=== PATIENT | female | born 1935 | race American Indian/Alaskan Native ===

== ENCOUNTER → 2018-08-10 08:39 | Outpatient (REF) | payer MEDICARE, MEDICAID, SELFPAY ==
[2018-08-10 11:07] LABS: Blood Urea Nitrogen 18 mg/dL (7-17); Calcium 9.2 mg/dL (8.4-10.2); Carbon Dioxide 38 mmol/L (22-32); Chloride 99 mmol/L (98-107); Glucose 72 mg/dL (80-110); HEMOLYSIS < 15 (0-50); Potassium 4.1 mmol/L (3.4-5.1); Sodium 140 mmol/L (137-145)
[2018-08-10 11:17] LABS: Add Manual Diff / Slide Review NO; Basophils Percent Auto 0.4 % (0-2); Eosinophils Percent Auto 3.7 % (2-4); Hematocrit 33.4 % (36-46); Hemoglobin 10.8 g/dL (12.0-16.0); Lymphocytes Percent Auto 21.6 % (25-40); Mean Corpuscular HGB Conc 32.4 % (30-36); Mean Corpuscular Volume 92.8 fL (80-100); Monocytes Percent Auto 10.6 % (3-14); Neutrophils Absolute Auto 2900 /uL (3000-5900); Neutrophils Percent Auto 63.7 % (50-75); Platelet Count 196 X10^3/uL (150-400); Red Cell Distribution Width 15.4 % (11.6-14.8); White Blood Cell Count 4.6 X10^3/uL (4.5-11.0)
== END ==
LOC: LAB 08:39
PROVIDERS: Family Provider Family Medicine; PCP Family Medicine; Visit Provider Hospitalist
DX: I48.91 Unspecified atrial fibrillation (principal); N39.0 Urinary tract infection, site not specified
CPT/HCPCS: 36415; 80048; 85025

== ENCOUNTER → 2018-08-19 08:45 | Outpatient (REF) | payer MEDICARE, MEDICAID, SELFPAY ==
[2018-08-19 09:56] LABS: BUN Creatinine Ratio 26.7 (6-22); Blood Urea Nitrogen 24 mg/dL (7-17); Calcium 9.2 mg/dL (8.4-10.2); Carbon Dioxide 38 mmol/L (22-32); Chloride 98 mmol/L (98-107); Estimated Glomerular Filt Rate 59.8 mL/min (>60); Glucose 76 mg/dL (80-110); HEMOLYSIS < 15 (0-50); Potassium 4.3 mmol/L (3.4-5.1); Sodium 143 mmol/L (137-145)
== END ==
LOC: LAB 08:45
PROVIDERS: Family Provider Family Medicine; PCP Family Medicine; Visit Provider Hospitalist
DX: I50.9 Heart failure, unspecified (principal)
CPT/HCPCS: 36415; 80048

== ENCOUNTER → 2018-09-11 19:28 | Outpatient (REF) | payer SELFPAY ==
[2018-09-11 19:33] LABS: Bacteria Urine None Seen; RBC Urine None Seen (0-5/HPF)
[2018-09-11 19:36] LABS: Appearance Urine UA CLEAR; Bilirubin Urine UA NEGATIVE (NEGATIVE); Color Urine UA YELLOW; Glucose Urine UA NEGATIVE (Normal); Ketones Urine UA NEGATIVE (NEGATIVE); Leukocyte Esterase Urine UA NEGATIVE (NEGATIVE); Nitrite Urine UA NEGATIVE (Negative); Occult Blood Urine UA NEGATIVE (Negative); Protein Urine UA NEGATIVE (Negative); Urobilinogen Urine UA 0.2 E.U./dL (0.2); pH Urine UA 6.5 (4.5-8.0)
[2018-09-11 19:43] LABS: Amorphous Sediment Urine 2+; WBC Urine None Seen (0-5/HPF)
== END ==
LOC: LAB 19:28
PROVIDERS: Family Provider Family Medicine; PCP Family Medicine; Visit Provider Nurse Practitioner Family
DX: R30.0 Dysuria (principal)
CPT/HCPCS: 81001; 87077; 87086

== ENCOUNTER 2018-12-07 17:41 | Emergency (ER) | payer MEDICARE, MEDICAID, SELFPAY ==
[2018-12-07 17:49] VITALS: BP 139/62; PULSE 67; RESP 22; TEMP 36.4; O2SAT 93
--- NOTE | 2018-12-07 21:35 | ED_ITS ---
HPI - Female Genitourinary General Chief complaint: Urogenital-Female Stated complaint: female problems Time Seen by Provider: 12/07/18 20:53 Source: patient Mode of arrival: wheelchair Limitations: no limitations History of Present Illness HPI Narrative: the patient is an 83-year-old female presenting with possibly lost vaginal applicator. She is currently being treated with Estrace, according to family and nursing his medication was applied today but the applicator has been lost. The patient's the the sore on her right perineal area. Related Data Previous Rx's Medication Instructions Recorded furosemide 20 mg PO QDAY #30 tab 07/11/16 metoprolol tartrate 50 mg PO BID #60 tab 10/28/16 tramadol 50 mg PO BID #60 tab 04/03/17 duloxetine [Cymbalta] 30 mg PO QDAY #30 cap 06/11/17 methimazole 5 mg PO QDAY #30 tab 06/24/17 potassium chloride [Klor-Con M20] 20 meq PO QDAY #30 tab 07/30/17 ropinirole [Requip] 0.25 mg PO HS #30 tab 08/15/17 rivaroxaban [Xarelto] 15 mg PO QDAY #30 tab 08/29/17 gabapentin [Neurontin] 300 mg PO TID #90 cap 09/22/17 lorazepam 1 mg PO HS #30 tab 10/08/17 nystatin 1 applictn TOP BID #30 gram 12/07/18 Allergies Allergy/AdvReac Type Severity Reaction Status Date / Time Penicillins [PENICILLINS] Allergy Severe HIVES Verified 12/07/18 17:53 cyclobenzaprine Allergy Unknown Verified 12/07/18 17:53 [CYCLOBENZAPRINE] indomethacin [INDOMETHACIN] Allergy Unknown Verified 12/07/18 17:53 ketorolac [KETOROLAC] Allergy Unknown Verified 12/07/18 17:53 morphine [MORPHINE] Allergy Unknown Verified 12/07/18 17:53 oxybutynin [OXYBUTYNIN] Allergy Unknown Verified 12/07/18 17:53 sertraline [SERTRALINE] Allergy Unknown Verified 12/07/18 17:53 aspirin [ASPIRIN] AdvReac Intermediate NAUSEA AND Verified 12/07/18 17:53 VOMITING ibuprofen [IBUPROFEN] AdvReac Intermediate NAUSEA AND Verified 12/07/18 17:53 VOMITING Review of Systems Review of Systems ROS Unobtainable: All systems reviewed & are unremarkable except as noted in HPI and below Constitutional Denies chills, Denies fever(s), Denies lethargy and Denies weakness Cardiovascular Denies chest pain, Denies irregular heart rhythm, Denies lightheadedness, Denies palpitations, Denies dyspnea, Denies dyspnea on exertion and Denies orthopnea Respiratory Denies cough, Denies dyspnea, Denies dyspnea on exertion and Denies wheezing Gastrointestinal Gastrointestinal: Denies abdominal pain, Denies change in bowel habits, Denies diarrhea, Denies nausea and Denies vomiting Genitourinary Reports as per HPI Musculoskeletal Denies back pain, Denies muscle weakness, Denies numbness and Denies tingling Integumentary/Breasts Denies pruritus, Denies erythema, Denies rash and Denies wounds Neurologic Denies numbness, Denies tingling and Denies weakness Endocrine Denies palpitations Allergic/Immunologic Denies wheezing [facility] Medical History Restless leg syndrome (Acute) Surgical History History of knee replacement Social History Smoking Status: Never smoker Social History Smoking Status: Never smoker Exam Initial Vital Signs Initial Vital Signs: Vital Signs Temperature 97.6 F 12/07/18 17:49 Pulse Rate 67 12/07/18 17:49 Respiratory Rate 22 12/07/18 17:49 Blood Pressure 139/62 12/07/18 17:49 Pulse Oximetry 93 12/07/18 17:49 GENERAL: overweight elderly male no acute distress HEENT: Head atraumatic,EOMI, pupils reactive, neck is supple CARDIOVASCULAR: Regular rate and rhythm without murmurs, rubs or gallops. RESPIRATORY: Breath sounds equal bilaterally, no wheezes rales or rhonchi. ABDOMEN: Soft, nontender. Normoactive bowel sounds all 4 quadrants. No guarding or rebound. PELVIC: External genitalia is normal, right inner thigh some mild skin breakdown. no vaginal bleeding, no vaginal discharge, no odor, cervical os is closed, no adnexal tenderness. no foreign body found by speculum or bimanual exam : No CVA tenderness EXTREMITIES: Normal range of motion, no clubbing or edema. Neurovascularly intact NEUROLOGICAL: Alert and oriented x4.Normal gait and speech. Cranial nerves II through XII grossly intact. [Good [id number], good [id number], strength equal bilaterally, no dysarthria or aphasia, sensation in tact to soft touch bilaterally, no visual changes, no facial droop] SKIN: Warm, dry, no laceration, no petechiae, no rashes or lesions. Course Vital Signs - 8 hr 12/07/18 21:46 Temperature 98.3 F Pulse Rate 70 Respiratory Rate 21 Blood Pressure [Left Arm] 172/68 H Pulse Oximetry 92 MDM - Female Genitourinary Lab Data Urine Dip Bedside Urine Glucose Negative Bedside Urine Bilirubin - Negative Bedside Urine Ketone - Negative Urine Specific [place] 1.010 Bedside Urine Occult Blood +/- Bedside Urine pH 6.5 Bedside Urine Protein - Negative Bedside Urine Urobilinogen +/- 1mg Bedside Urine Nitrite - Negative Bedside Urine Leukocytes - Negative Esterase MDM Narrative Medical decision making narrative: no foreign body found or felt in vagina. She does have a small wound right inner thigh. Some very mild skin breakdown. Discharge Plan Departure Patient Disposition: Home Clinical Impression: Rash of genital area Discharge Date/Time: 12/07/18 21:53 Interventions: ED Discharge Assessment Last Done: 12/07/18 21:52 Instructions: DI for [place] Diaper Rash Activity Restrictions/Additional Instructions: *You have been diagnosed with rash *What to do: *Continue to take medications as directed nystatin cream apply 2-3 times daily for 2 weeks or in till wound is healed *Follow up with your primary care provider in 2-3 days *Return to ER if you should have increasing pain, redness, fever, confusion or any new, worsening or concerning symptoms Prescriptions: New nystatin 100,000 unit/gram ointment 1 applictn TOP BID Qty: 30 RF: 0 No Action furosemide 20 MG tablet 20 mg PO QDAY Qty: 30 RF: 5 metoprolol tartrate 50 MG tablet 50 mg PO BID Qty: 60 RF: 3 tramadol 50 MG tablet 50 mg PO BID Qty: 60 RF: 1 duloxetine [Cymbalta] 30 MG capsule,delayed release(DR/EC) 30 mg PO QDAY Qty: 30 RF: 11 methimazole 5 MG tablet 5 mg PO QDAY Qty: 30 RF: 11 potassium chloride [Klor-Con M20] 20 MEQ tablet,ER particles/crystals 20 meq PO QDAY Qty: 30 RF: 5 ropinirole [Requip] 0.25 MG tablet 0.25 mg PO HS Qty: 30 RF: 6 rivaroxaban [Xarelto] 15 MG tablet 15 mg PO QDAY Qty: 30 RF: 6 gabapentin [Neurontin] 300 MG capsule 300 mg PO TID Qty: 90 RF: 2 lorazepam 1 MG tablet 1 mg PO HS Qty: 30 RF: 2
[2018-12-07 21:46] VITALS: BP 172/68; PULSE 70; RESP 21; TEMP 36.8; O2SAT 92
== END 2018-12-07 21:53 | disposition home or self-care (01) ==
PROVIDERS: Emergency Provider Emergency Medicine; Family Provider Family Medicine; PCP Family Medicine
DX: R21 Rash and other nonspecific skin eruption (principal)
CPT/HCPCS: 81003; 99283

== ENCOUNTER 2018-12-30 11:50 | Emergency (ER) | payer MEDICARE, MEDICAID, SELFPAY ==
[2018-12-30 12:11] VITALS: BP 158/70; PULSE 83; RESP 24; TEMP 36.5; O2SAT 100
--- NOTE | 2018-12-30 12:36 | ED.SOB ---
HPI - SOB/Dyspnea <JOSE Giron - Last Filed: 12/30/18 22:34> General Chief Complaint: Shortness of Breath/Dyspnea Stated Complaint: SOB Time Seen by Provider: 12/30/18 12:24 Source: family and EMS Mode of arrival: EMS Limitations: no limitations History of Present Illness 83-year-old female with history of morbid obesity CHF and pulmonary embolus here for complaint of having shortness of breath that started last night. She denies any chest pain. No fevers no chills. She also complains of having pain to bilateral lower extremities and describes this as crampy pain. This is not new for her as she reports that she normally has cramps to her lower extremities. She has been tolerating p.o. intake well. No stressors or relievers of her discomfort. She is able to speak full sentences. She normally uses oxygen at home due to sleep apnea. MD Complaint: shortness of breath Related Data Home Medications Medication Instructions Recorded Confirmed Xarelto 15 mg PO DAILY 12/30/18 12/30/18 acetaminophen-codeine 0.5 - 1 tab PO BID PRN 12/30/18 12/30/18 amiodarone 200 mg PO DAILY 12/30/18 12/30/18 clotrimazole-betamethasone 1 applic TOPICAL BID 12/30/18 12/30/18 duloxetine [Cymbalta] 30 mg PO DAILY 12/30/18 12/30/18 estradiol [Estrace] 1 applic VAGINAL BID 12/30/18 12/30/18 furosemide 40 mg PO DAILY 12/30/18 12/30/18 gabapentin 300 mg PO DAILY 12/30/18 12/30/18 gabapentin 600 mg PO BID 12/30/18 12/30/18 methimazole 5 mg PO DAILY 12/30/18 12/30/18 nitroglycerin 0.4 mg SUBLINGUAL PRN PRN 12/30/18 12/30/18 potassium chloride [Klor-Con M20] 20 meq PO DAILY 12/30/18 12/30/18 ropinirole [Requip] 0.25 mg PO BEDTIME 12/30/18 12/30/18 sulfamethoxazole-trimethoprim 1 tab PO BIDX7 12/30/18 12/30/18 tizanidine 4 mg PO BEDTIME 12/30/18 12/30/18 tramadol 50 mg PO TID PRN 12/30/18 12/30/18 Previous Rx's Medication Instructions Recorded nystatin 1 applictn TOP BID #30 gram 12/07/18 furosemide 40 mg PO DAILY #10 tab 12/30/18 furosemide 40 mg PO DAILY #7 tab 12/30/18 Allergies Allergy/AdvReac Type Severity Reaction Status Date / Time Penicillins [PENICILLINS] Allergy Severe HIVES Verified 12/07/18 17:53 cyclobenzaprine Allergy Unknown Verified 12/07/18 17:53 [CYCLOBENZAPRINE] indomethacin [INDOMETHACIN] Allergy Unknown Verified 12/07/18 17:53 ketorolac [KETOROLAC] Allergy Unknown Verified 12/07/18 17:53 morphine [MORPHINE] Allergy Unknown Verified 12/07/18 17:53 oxybutynin [OXYBUTYNIN] Allergy Unknown Verified 12/07/18 17:53 sertraline [SERTRALINE] Allergy Unknown Verified 12/07/18 17:53 aspirin [ASPIRIN] AdvReac Intermediate NAUSEA AND Verified 12/07/18 17:53 VOMITING ibuprofen [IBUPROFEN] AdvReac Intermediate NAUSEA AND Verified 12/07/18 17:53 VOMITING Review of Systems <JOSE Giron - Last Filed: 12/30/18 22:34> Constitutional Denies chills, Denies fever(s), Denies lethargy and Denies weakness Eyes Denies change in vision, Denies eye discharge, Denies irritation and Denies loss of vision ENT Ears, Nose, Mouth, and Throat: Denies change in voice, Denies neck pain, Denies sore throat and Denies throat swelling Cardiovascular Denies chest pain, Denies irregular heart rhythm, Denies lightheadedness, Denies palpitations, Reports dyspnea and Denies orthopnea Respiratory Reports dyspnea and Denies wheezing Gastrointestinal Gastrointestinal: Denies abdominal pain, Denies change in bowel habits, Denies diarrhea, Denies nausea and Denies vomiting Genitourinary Denies hematuria, Denies flank pain, Denies urinary incontinence and Denies urinary urgency Musculoskeletal Denies neck pain Neurologic Denies confusion, Denies loss of vision and Denies weakness Psychiatric Denies anxiety, Denies confusion, Denies depression, Denies homicidal ideation and Denies suicidal ideation Endocrine Denies palpitations Allergic/Immunologic Denies urticaria, Denies throat swelling and Denies wheezing PFSH <JOSE Giron - Last Filed: 12/30/18 22:34> Medical History Restless leg syndrome (Acute) Surgical History History of knee replacement Social History Smoking Status: Never smoker Social History Smoking Status: Never smoker Exam <JOSE Giron - Last Filed: 12/30/18 22:34> Initial Vital Signs Initial Vital Signs: Vital Signs Temperature 97.7 F 12/30/18 12:11 Pulse Rate 83 12/30/18 12:11 Respiratory Rate 24 12/30/18 12:11 Blood Pressure 158/70 H 12/30/18 12:11 Pulse Oximetry 100 12/30/18 12:11 Const General: cooperative and well developed Nutritional Appearance: well nourished Orientation: alert, awake, oriented x3 and not confused HENCA Mouth: oral mucosae normal and moist mucous membranes Eyes General: appearance normal, both eyes and all related structures Eyelids: eyelids normal Conjunctivae: conjunctivae normal Sclera: sclerae normal Pupils: PERRL EOM: EOM intact bilaterally Resp Effort & Inspection: normal respiratory effort, able to speak in complete sentences, no respiratory distress and no use of accessory muscles Auscultation: clear to auscultation bilaterally, no rales, no rhonchi and no wheezes Cardio Rate: regular rate Rhythm: regular rhythm Heart Sounds: no click, no gallops, no murmurs and no rubs Pulses: normal peripheral pulses Skin General: no rashes or lesions noted, No jaundice and No petechiae Neuro General: alert, oriented x3, gait normal and no focal motor deficits Speech: speech normal Extrem General: full ROM, no clubbing, cyanosis or edema, no pedal edema and no calf tenderness Right lower extremity: no edema Left lower extremity: no edema <Blessing Weber DO - Last Filed: 01/01/19 11:25> Initial Vital Signs Initial Vital Signs: Vital Signs Temperature 97.7 F 12/30/18 12:11 Pulse Rate 83 12/30/18 12:11 Respiratory Rate 24 12/30/18 12:11 Blood Pressure 158/70 H 12/30/18 12:11 Pulse Oximetry 100 12/30/18 12:11 Course <JOSE Giron - Last Filed: 12/30/18 22:34> Orders Ordered: Discontinued Medications Sodium Chloride (Normal Saline 0.9%) 500 mls @ 1,000 mls/hr IV BOLUS ONE Stop: 12/30/18 14:09 Last Infusion: 12/30/18 17:18 Dose: 0 mls/hr Admin: 12/30/18 13:43 Dose: 1,000 mls/hr Morphine Sulfate (Morphine) 2 mg IV NOW ONE Stop: 12/30/18 14:39 Vital Signs - 8 hr 12/30/18 14:49 12/30/18 16:30 Pulse Rate 83 82 Respiratory Rate 24 21 Blood Pressure [Left Arm] 147/111 H 138/60 Pulse Oximetry 97 100 <Blessing Weber DO - Last Filed: 01/01/19 11:25> Orders Ordered: Discontinued Medications Sodium Chloride (Normal Saline 0.9%) 500 mls @ 1,000 mls/hr IV BOLUS ONE Stop: 12/30/18 14:09 Last Infusion: 12/30/18 17:18 Dose: 0 mls/hr Admin: 12/30/18 13:43 Dose: 1,000 mls/hr Morphine Sulfate (Morphine) 2 mg IV NOW ONE Stop: 12/30/18 14:39 Vital Signs - 8 hr 12/30/18 14:49 12/30/18 16:30 Pulse Rate 83 82 Respiratory Rate 24 21 Blood Pressure [Left Arm] 147/111 H 138/60 Pulse Oximetry 97 100 MDM - SOB/Dyspnea <JOSE Giron - Last Filed: 12/30/18 22:34> Lab Data Result diagrams: 12/30/18 11:30 12/30/18 11:30 Lab Results 12/30/18 12/30/18 12/30/18 Range/Units 11:30 11:30 11:30 WBC 5.8 (4.5-11.0) X10^3/uL RBC 4.20 (4.0-5.2) X10^6/uL Hgb 13.0 (12.0-16.0) g/dL Hct 39.3 (36-46) % MCV 93.4 (80-100) fL MCH 30.9 (26-34) PG MCHC 33.1 (30-36) % RDW 14.7 (11.6-14.8) % Plt Count 238 (150-400) X10^3/uL Neut % (Auto) 71.5 (50-75) % Lymph % (Auto) 12.9 L (25-40) % [place] % (Auto) 13.7 (3-14) % Eos % (Auto) 1.5 L (2-4) % Baso % (Auto) 0.4 (0-2) % Neut # (Auto) 4100 (3614-6275) /uL Lymph # (Auto) 700 L (5437-9548) /uL [place] # (Auto) 800 (0-900) /uL Eos # (Auto) 100 (0-450) /uL Baso # (Auto) 0 (0-100) /uL Sodium 128 L (137-145) mmol/L Potassium 4.7 (3.4-5.1) mmol/L Chloride 89 L (98-107) mmol/L Carbon Dioxide 27 (22-32) mmol/L BUN 14 (7-17) mg/dL Creatinine 0.90 (0.52-1.04) mg/dL Estimated GFR 59.8 L (>60) mL/min BUN/Creatinine Ratio 15.6 (6-22) Glucose 96 (80-110) mg/dL Lactate (0.7-2.1) mmol/L Calcium 9.8 (8.4-10.2) mg/dL Magnesium 2.0 (1.6-2.3) mg/dL Total Bilirubin 1.4 H (0.2-1.3) mg/dL AST 42 H (14-36) IU/L ALT 24 (9-52) IU/L Alkaline Phosphatase 134 H (38-126) U/L Total Creatine Kinase 313 H (30-135) U/L CK-MB (CK-2) 7.80 H (<2.37) ng/mL CK-MB (CK-2) Rel Index 2.5 (1.5-5.0) % Troponin I 0.021 (0.01-0.034) ng/mL B-Natriuretic Peptide 651 H (<100) Total Protein 8.6 H (6.3-8.2) g/dL Albumin 4.6 (3.5-5.0) g/dL Globulin 4.0 (1.7-4.1) g/dL Albumin/Globulin Ratio 1.2 (1.0-2.8) Procalcitonin < 0.05 (<0.5) ng/mL Urine Color Urine Appearance Urine pH (4.5-8.0) Ur Specific [place] (1.000-1.035) Urine Protein (Negative) Urine Glucose (UA) (Negative) g/dL Urine Ketones (NEGATIVE) Urine Occult Blood (Negative) Urine Nitrate (Negative) Urine Bilirubin (NEGATIVE) Urine Urobilinogen (0.2) E.U./dL Ur Leukocyte Esterase (NEGATIVE) Urine RBC (0-5/HPF) Urine WBC (0-5/HPF) Ur Squamous Epith Cells Amorphous Sediment Urine Bacteria (None) Urine Mucus (Negative) Ur Culture Indicated? Influenza A & B (PCR) (Negative) 12/30/18 12/30/18 12/30/18 Range/Units 13:34 14:10 15:00 WBC (4.5-11.0) X10^3/uL RBC (4.0-5.2) X10^6/uL Hgb (12.0-16.0) g/dL Hct (36-46) % MCV (80-100) fL MCH (26-34) PG MCHC (30-36) % RDW (11.6-14.8) % Plt Count (150-400) X10^3/uL Neut % (Auto) (50-75) % Lymph % (Auto) (25-40) % [place] % (Auto) (3-14) % Eos % (Auto) (2-4) % Baso % (Auto) (0-2) % Neut # (Auto) (3212-7113) /uL Lymph # (Auto) (4726-5290) /uL [place] # (Auto) (0-900) /uL Eos # (Auto) (0-450) /uL Baso # (Auto) (0-100) /uL Sodium (137-145) mmol/L Potassium (3.4-5.1) mmol/L Chloride (98-107) mmol/L Carbon Dioxide (22-32) mmol/L BUN (7-17) mg/dL Creatinine (0.52-1.04) mg/dL Estimated GFR (>60) mL/min BUN/Creatinine Ratio (6-22) Glucose (80-110) mg/dL Lactate 1.4 (0.7-2.1) mmol/L Calcium (8.4-10.2) mg/dL Magnesium (1.6-2.3) mg/dL Total Bilirubin (0.2-1.3) mg/dL AST (14-36) IU/L ALT (9-52) IU/L Alkaline Phosphatase (38-126) U/L Total Creatine Kinase (30-135) U/L CK-MB (CK-2) (<2.37) ng/mL CK-MB (CK-2) Rel Index (1.5-5.0) % Troponin I (0.01-0.034) ng/mL B-Natriuretic Peptide (<100) Total Protein (6.3-8.2) g/dL Albumin (3.5-5.0) g/dL Globulin (1.7-4.1) g/dL Albumin/Globulin Ratio (1.0-2.8) Procalcitonin (<0.5) ng/mL Urine Color Yellow Urine Appearance Clear Urine pH 7.0 (4.5-8.0) Ur Specific [place] 1.010 (1.000-1.035) Urine Protein Negative (Negative) Urine Glucose (UA) Negative (Negative) g/dL Urine Ketones Negative (NEGATIVE) Urine Occult Blood Trace-intact (Negative) Urine Nitrate Negative (Negative) Urine Bilirubin Negative (NEGATIVE) Urine Urobilinogen 4.0 H (0.2) E.U./dL Ur Leukocyte Esterase Negative (NEGATIVE) Urine RBC 1-5/hpf (0-5/HPF) Urine WBC 0-1/hpf (0-5/HPF) Ur Squamous Epith Cells 0-1 /hpf Amorphous Sediment 1+ Urine Bacteria Occasional (0-1) (None) Urine Mucus 1+ H (Negative) Ur Culture Indicated? Cult not indicated Influenza A & B (PCR) Negative (Negative) Imaging Data CT scan - chest: Radiologist's impression: [address] [address] [address] Scan Report Signed Patient: Siddharth Spence [facility]#: [id number] : 5Acct:[id number] Age/Sex: 83 / FDate of Service: 12/30/18 Loc: Accession Number: [id number] Procedure: CT angio chest PE protocol Ordering Provider: Freddie Zapata PROCEDURE: CT ANGIO CHEST PE PROTOCOL INDICATIONS: Shortness of breath history of blood clots TECHNIQUE: After the administration of intravenous contrast, 2 mm thick sections acquired from the pulmonary apices to the posterior costophrenic angles. 3-dimensional maximum intensity projection (MIP) coronal and sagittal reformats were then acquired through the thorax. For radiation dose reduction, the following was used: automated exposure control, adjustment of mA and/or kV according to patient size. COMPARISON: [facility], CT, CT CHEST ABDOMEN PELVIS WITH TRAUMA, 07/22/2018, 14:00. FINDINGS: Image quality: A limited by suboptimal contrast opacification of the subsegmental pulmonary arteries. Pulmonary arteries: Pulmonary arteries are normal in size, and demonstrate no intraluminal filling defects to suggest central pulmonary embolism. Lungs and pleura: Dependent atelectasis noted. 8mm nodule in the lateral periphery of the lingula of left upper lobe has resolved. No pleural effusions or pneumothorax. Central and peripheral airways are patent. Mediastinum: Heart size is enlarged without pericardial effusion. Atherosclerotic calcifications are noted in the aorta, great vessels and the coronary vasculature. No mediastinal or hilar adenopathy. Thoracic aorta is normal in caliber and enhancement. Esophagus is normal in caliber, without hiatal hernia. Bones and chest wall: No suspicious bony lesions. Ribs and thoracic spine appear intact throughout. Spine degenerative disc disease and facet arthropathy. Convex right curvature thoracic spine noted. Thyroid gland is enlarged with multiple hypoattenuating nodules. Largest nodules in the left lobe measures 4.5 cm in diameter. There is leftward shift of the upper thoracic trachea related to enlarged thyroid.. No axillary or supraclavicular adenopathy. Abdomen: Small hiatal hernia. Gallbladder is absent. The spleen is normal. Liver is within normal limits where visualized. The adrenal glands are normal. IMPRESSION: 1. Diagnostic sensitivity study limited by poor contrast opacification of the subsegmental pulmonary arteries. 2. No evidence of pulmonary embolus to the level of the segmental pulmonary arteries. Small pulmonary emboli involving the subsegmental pulmonary arteries cannot be excluded due to the limitations of the study. 3. No lung consolidation or pleural effusions. 4. Cardiomegaly. 5. Atherosclerosis including the coronary vasculature. 6. Multinodular thyroid gland with the largest nodule measuring 4.5 cm. Recommend thyroid ultrasound for definitive characterization if clinically indicated. 7. Small hiatal hernia. Dictated by: Jacqui Crisostomo MD, PhD on 12/30/2018 at 14:10 Approved by: Jacqui Crisostomo MD, PhD on 12/30/2018 at 14:21 Venous US: Radiologist's impression: [address] [address] Ultrasound Report Signed Patient: Siddharth Spence [facility]#: [id number] : 5Acct:[id number] Age/Sex: 83 / FDate of Service: 12/30/18 Loc: ED Accession Number: [id number] Procedure: US periph venous low extrem bi Ordering Provider: Freddie Zapata PROCEDURE: US PERIPH VENOUS LOW EXTREM BI INDICATIONS: PAIN TO LOWER EXTREMITIES TECHNIQUE: Real-time imaging, as well as color and pulse Doppler interrogation, were performed of the deep veins of both legs from the inguinal ligament to the popliteal fossa. COMPARISON: None. FINDINGS: This is a limited study. Extremely difficult examination due to patient body habitus, uncooperation, and constant movement. No obvious sign of DVT. IMPRESSION: Technically challenging study, limited, with no obvious sign of DVT. Dictated by: Attila Villafana M.D. on 12/30/2018 at 13:50 Approved by: Attila Villafana M.D. on 12/30/2018 at 13:51 ECG Data Interpretation: EKG shows sinus rhythm with no ST elevation or depression. No ectopy. Ventricular rate of 78. Pr interval of 176. QRS duration of 108. QTC of 405. MDM Narrative Medical decision making narrative: pe protocol CT was obtained and was negative for pulmonary embolus. No acute cardiopulmonary findings. CT does show cardiomegaly. Incidental finding of a multi nodular thyroid gland will have this followed up by primary care provider. CBC shows normal white count normal H&H. chemistry shows hypo in a tree me a of 128 and a chloride of 89. BNP is elevated at 651. Procalcitonin was 0.05. lactate was normal at 1.4. Troponin was obtained and was negative. She is able to tolerate p.o. intake. She was given broth and saltine crackers which she tolerated well. Believe her cramps is due to the sodium level. Respiratory rate was elevated 24 looking at her prior respiratory values at believe this may be the norm for her. Discussed case with hospitalist Dr. Cortez who does not believe the patient meets admission criteria. She is given a small amount of Lasix for the next few days to help with CHF. She is instructed not to limit the amount of free water that she is drinking. She is in courage to increase her sodium intake over the next few days see her doctor in the next couple of days for re-evaluation. For any worsening symptoms return emergency room. <Blessing Weber, DO - Last Filed: 01/01/19 11:25> Lab Data Lab Results 12/30/18 12/30/18 12/30/18 Range/Units 11:30 11:30 11:30 WBC 5.8 (4.5-11.0) X10^3/uL RBC 4.20 (4.0-5.2) X10^6/uL Hgb 13.0 (12.0-16.0) g/dL Hct 39.3 (36-46) % MCV 93.4 (80-100) fL MCH 30.9 (26-34) PG MCHC 33.1 (30-36) % RDW 14.7 (11.6-14.8) % Plt Count 238 (150-400) X10^3/uL Neut % (Auto) 71.5 (50-75) % Lymph % (Auto) 12.9 L (25-40) % [place] % (Auto) 13.7 (3-14) % Eos % (Auto) 1.5 L (2-4) % Baso % (Auto) 0.4 (0-2) % Neut # (Auto) 4100 (8597-3900) /uL Lymph # (Auto) 700 L (9524-4999) /uL [place] # (Auto) 800 (0-900) /uL Eos # (Auto) 100 (0-450) /uL Baso # (Auto) 0 (0-100) /uL Sodium 128 L (137-145) mmol/L Potassium 4.7 (3.4-5.1) mmol/L Chloride 89 L (98-107) mmol/L Carbon Dioxide 27 (22-32) mmol/L BUN 14 (7-17) mg/dL Creatinine 0.90 (0.52-1.04) mg/dL Estimated GFR 59.8 L (>60) mL/min BUN/Creatinine Ratio 15.6 (6-22) Glucose 96 (80-110) mg/dL Lactate (0.7-2.1) mmol/L Calcium 9.8 (8.4-10.2) mg/dL Magnesium 2.0 (1.6-2.3) mg/dL Total Bilirubin 1.4 H (0.2-1.3) mg/dL AST 42 H (14-36) IU/L ALT 24 (9-52) IU/L Alkaline Phosphatase 134 H (38-126) U/L Total Creatine Kinase 313 H (30-135) U/L CK-MB (CK-2) 7.80 H (<2.37) ng/mL CK-MB (CK-2) Rel Index 2.5 (1.5-5.0) % Troponin I 0.021 (0.01-0.034) ng/mL B-Natriuretic Peptide 651 H (<100) Total Protein 8.6 H (6.3-8.2) g/dL Albumin 4.6 (3.5-5.0) g/dL Globulin 4.0 (1.7-4.1) g/dL Albumin/Globulin Ratio 1.2 (1.0-2.8) Procalcitonin < 0.05 (<0.5) ng/mL Urine Color Urine Appearance Urine pH (4.5-8.0) Ur Specific [place] (1.000-1.035) Urine Protein (Negative) Urine Glucose (UA) (Negative) g/dL Urine Ketones (NEGATIVE) Urine Occult Blood (Negative) Urine Nitrate (Negative) Urine Bilirubin (NEGATIVE) Urine Urobilinogen (0.2) E.U./dL Ur Leukocyte Esterase (NEGATIVE) Urine RBC (0-5/HPF) Urine WBC (0-5/HPF) Ur Squamous Epith Cells Amorphous Sediment Urine Bacteria (None) Urine Mucus (Negative) Ur Culture Indicated? Influenza A & B (PCR) (Negative) 12/30/18 12/30/18 12/30/18 Range/Units 13:34 14:10 15:00 WBC (4.5-11.0) X10^3/uL RBC (4.0-5.2) X10^6/uL Hgb (12.0-16.0) g/dL Hct (36-46) % MCV (80-100) fL MCH (26-34) PG MCHC (30-36) % RDW (11.6-14.8) % Plt Count (150-400) X10^3/uL Neut % (Auto) (50-75) % Lymph % (Auto) (25-40) % [place] % (Auto) (3-14) % Eos % (Auto) (2-4) % Baso % (Auto) (0-2) % Neut # (Auto) (9944-9541) /uL Lymph # (Auto) (4178-8776) /uL [place] # (Auto) (0-900) /uL Eos # (Auto) (0-450) /uL Baso # (Auto) (0-100) /uL Sodium (137-145) mmol/L Potassium (3.4-5.1) mmol/L Chloride (98-107) mmol/L Carbon Dioxide (22-32) mmol/L BUN (7-17) mg/dL Creatinine (0.52-1.04) mg/dL Estimated GFR (>60) mL/min BUN/Creatinine Ratio (6-22) Glucose (80-110) mg/dL Lactate 1.4 (0.7-2.1) mmol/L Calcium (8.4-10.2) mg/dL Magnesium (1.6-2.3) mg/dL Total Bilirubin (0.2-1.3) mg/dL AST (14-36) IU/L ALT (9-52) IU/L Alkaline Phosphatase (38-126) U/L Total Creatine Kinase (30-135) U/L CK-MB (CK-2) (<2.37) ng/mL CK-MB (CK-2) Rel Index (1.5-5.0) % Troponin I (0.01-0.034) ng/mL B-Natriuretic Peptide (<100) Total Protein (6.3-8.2) g/dL Albumin (3.5-5.0) g/dL Globulin (1.7-4.1) g/dL Albumin/Globulin Ratio (1.0-2.8) Procalcitonin (<0.5) ng/mL Urine Color Yellow Urine Appearance Clear Urine pH 7.0 (4.5-8.0) Ur Specific [place] 1.010 (1.000-1.035) Urine Protein Negative (Negative) Urine Glucose (UA) Negative (Negative) g/dL Urine Ketones Negative (NEGATIVE) Urine Occult Blood Trace-intact (Negative) Urine Nitrate Negative (Negative) Urine Bilirubin Negative (NEGATIVE) Urine Urobilinogen 4.0 H (0.2) E.U./dL Ur Leukocyte Esterase Negative (NEGATIVE) Urine RBC 1-5/hpf (0-5/HPF) Urine WBC 0-1/hpf (0-5/HPF) Ur Squamous Epith Cells 0-1 /hpf Amorphous Sediment 1+ Urine Bacteria Occasional (0-1) (None) Urine Mucus 1+ H (Negative) Ur Culture Indicated? Cult not indicated Influenza A & B (PCR) Negative (Negative) Discharge Plan Departure Patient Disposition: Home Clinical Impression: Acute hyponatremia Congestive heart failure (CHF) Qualifiers: Heart failure type: unspecified Heart failure chronicity: unspecified Qualified Code(s): I50.9 - Heart failure, unspecified Discharge Date/Time: 12/30/18 17:54 Interventions: ED Discharge Assessment Last Done: 12/30/18 17:14 Instructions: DI for Heart Failure Activity Restrictions/Additional Instructions: CT scan today was obtained and was negative for any acute pulmonary findings or blood clot. Ultrasound lower extremities was also obtained was also negative for any blood clots. Cardiac enzymes today were obtained and were negative. EKG today was unremarkable. Her BNP is elevated indicating that she has some heart failure. She is prescribed a small amount of Lasix over the next few days to help with this. Follow up with primary care provider in the next couple of days for re-evaluation. Her sodium level was low today ensure that she is not drinking as much free fluid. Increased sodium intake over the next few days to help with this level. Incidental finding on CT shows that she has nodules to her thyroid area. Recommend follow-up study see primary care about this for further evaluation. For any worsening symptoms return to the emergency room. Prescriptions: New furosemide 20 mg tablet 40 mg PO DAILY Qty: 10 RF: 0 furosemide 40 mg tablet 40 mg PO DAILY Qty: 7 RF: 0 No Action furosemide 40 mg tablet 40 mg PO DAILY RF: 0 gabapentin 600 mg tablet 600 mg PO BID RF: 0 tizanidine 4 mg tablet 4 mg PO BEDTIME RF: 0 amiodarone 200 mg tablet 200 mg PO DAILY RF: 0 acetaminophen-codeine 300-30 mg tablet 0.5 - 1 tab PO BID PRN (Reason: pain) RF: 0 nitroglycerin 0.4 mg tablet, sublingual 0.4 mg Sublingual PRN PRN (Reason: Chest Pain) RF: 0 estradiol [Estrace] 0.01 % (0.1 mg/gram) cream 1 applic Vaginal BID RF: 0 tramadol 50 MG tablet 50 mg PO TID PRN (Reason: pain) RF: 0 ropinirole [Requip] 0.25 MG tablet 0.25 mg PO BEDTIME RF: 0 methimazole 5 MG tablet 5 mg PO DAILY RF: 0 duloxetine [Cymbalta] 30 MG capsule,delayed release(DR/EC) 30 mg PO DAILY RF: 0 Xarelto 15 MG tablet 15 mg PO DAILY RF: 0 sulfamethoxazole-trimethoprim 800-160 mg tablet 1 tab PO BIDX7 RF: 0 potassium chloride [Klor-Con M20] 20 MEQ tablet,ER particles/crystals 20 meq PO DAILY RF: 0 gabapentin 600 mg tablet 300 mg PO DAILY RF: 0 clotrimazole-betamethasone 1-0.05 % cream 1 applic topical BID RF: 0 nystatin 100,000 unit/gram ointment 1 applictn TOP BID Qty: 30 RF: 0 Referrals: Lorenzo Muller MD [Primary Care Provider] - <Blessing Weber DO - Last Filed: 01/01/19 11:25> Cosign ED Attending Cosignature Attestation: I was immediately available in the department for consultation. Case was discussed and provider felt patient may benefit from observation. Patient has not had any treatment for CHF exacerbation up to this point and hospitalist deferred. This documentation has been reviewed and I agree with assessment and plan. Supervised by Blessing Weber DO
--- NOTE | 2018-12-30 12:53 | DI.US.S_ITS ---
PROCEDURE: US PERIPH VENOUS LOW EXTREM BI INDICATIONS: PAIN TO LOWER EXTREMITIES TECHNIQUE: Real-time imaging, as well as color and pulse Doppler interrogation, were performed of the deep veins of both legs from the inguinal ligament to the popliteal fossa. COMPARISON: None. FINDINGS: This is a limited study. Extremely difficult examination due to patient body habitus, uncooperation, and constant movement. No obvious sign of DVT. IMPRESSION: Technically challenging study, limited, with no obvious sign of DVT. Dictated by: Attila Villafana M.D. on 12/30/2018 at 13:50 Approved by: Attila Villafana M.D. on 12/30/2018 at 13:51
--- NOTE | 2018-12-30 12:55 | DI.CT.S_ITS ---
PROCEDURE: CT ANGIO CHEST PE PROTOCOL INDICATIONS: Shortness of breath history of blood clots TECHNIQUE: After the administration of intravenous contrast, 2 mm thick sections acquired from the pulmonary apices to the posterior costophrenic angles. 3-dimensional maximum intensity projection (MIP) coronal and sagittal reformats were then acquired through the thorax. For radiation dose reduction, the following was used: automated exposure control, adjustment of mA and/or kV according to patient size. COMPARISON: [facility], CT, CT CHEST ABDOMEN PELVIS WITH TRAUMA, 07/22/2018, 14:00. FINDINGS: Image quality: A limited by suboptimal contrast opacification of the subsegmental pulmonary arteries. Pulmonary arteries: Pulmonary arteries are normal in size, and demonstrate no intraluminal filling defects to suggest central pulmonary embolism. Lungs and pleura: Dependent atelectasis noted. 8mm nodule in the lateral periphery of the lingula of left upper lobe has resolved. No pleural effusions or pneumothorax. Central and peripheral airways are patent. Mediastinum: Heart size is enlarged without pericardial effusion. Atherosclerotic calcifications are noted in the aorta, great vessels and the coronary vasculature. No mediastinal or hilar adenopathy. Thoracic aorta is normal in caliber and enhancement. Esophagus is normal in caliber, without hiatal hernia. Bones and chest wall: No suspicious bony lesions. Ribs and thoracic spine appear intact throughout. Spine degenerative disc disease and facet arthropathy. Convex right curvature thoracic spine noted. Thyroid gland is enlarged with multiple hypoattenuating nodules. Largest nodules in the left lobe measures 4.5 cm in diameter. There is leftward shift of the upper thoracic trachea related to enlarged thyroid.. No axillary or supraclavicular adenopathy. Abdomen: Small hiatal hernia. Gallbladder is absent. The spleen is normal. Liver is within normal limits where visualized. The adrenal glands are normal. IMPRESSION: 1. Diagnostic sensitivity study limited by poor contrast opacification of the subsegmental pulmonary arteries. 2. No evidence of pulmonary embolus to the level of the segmental pulmonary arteries. Small pulmonary emboli involving the subsegmental pulmonary arteries cannot be excluded due to the limitations of the study. 3. No lung consolidation or pleural effusions. 4. Cardiomegaly. 5. Atherosclerosis including the coronary vasculature. 6. Multinodular thyroid gland with the largest nodule measuring 4.5 cm. Recommend thyroid ultrasound for definitive characterization if clinically indicated. 7. Small hiatal hernia. Dictated by: Jacqui Crisostomo MD, PhD on 12/30/2018 at 14:10 Approved by: Jacqui Crisostomo MD, PhD on 12/30/2018 at 14:21
[2018-12-30 13:04] LABS: Add Manual Diff / Slide Review NO; Basophils Absolute Auto 0 /uL (0-100); Basophils Percent Auto 0.4 % (0-2); Eosinophils Absolute Auto 100 /uL (0-450); Eosinophils Percent Auto 1.5 % (2-4); Hematocrit 39.3 % (36-46); Lymphocytes Absolute Auto 700 /uL (1100-4500); Lymphocytes Percent Auto 12.9 % (25-40); Mean Corpuscular HGB Conc 33.1 % (30-36); Mean Corpuscular Hemoglobin 30.9 PG (26-34); Mean Corpuscular Volume 93.4 fL (80-100); Monocytes Absolute Auto 800 /uL (0-900); Monocytes Percent Auto 13.7 % (3-14); Neutrophils Absolute Auto 4100 /uL (1500-7000); Neutrophils Percent Auto 71.5 % (50-75); Platelet Count 238 X10^3/uL (150-400); Red Cell Distribution Width 14.7 % (11.6-14.8); White Blood Cell Count 5.8 X10^3/uL (4.5-11.0)
[2018-12-30 13:13] LABS: Alanine Aminotransferase 24 IU/L (9-52); Albumin 4.6 g/dL (3.5-5.0); Albumin Globulin Ratio 1.2 (1.0-2.8); Alkaline Phosphatase 134 U/L (38-126); Aspartate Aminotransferase 42 IU/L (14-36); BUN Creatinine Ratio 15.6 (6-22); Bilirubin Total 1.4 mg/dL (0.2-1.3); Blood Urea Nitrogen 14 mg/dL (7-17); Calcium 9.8 mg/dL (8.4-10.2); Carbon Dioxide 27 mmol/L (22-32); Chloride 89 mmol/L (98-107); Creatine Kinase 313 U/L (30-135); Estimated Glomerular Filt Rate 59.8 mL/min (>60); Glucose 96 mg/dL (80-110); HEMOLYSIS < 15 (0-50); Potassium 4.7 mmol/L (3.4-5.1); Sodium 128 mmol/L (137-145); Total Protein 8.6 g/dL (6.3-8.2)
[2018-12-30 13:24] LABS: Troponin I 0.021 ng/mL (0.01-0.034)
[2018-12-30 13:28] LABS: CKMB % Relative Index 2.5 % (1.5-5.0)
[2018-12-30 13:29] LABS: Procalcitonin < 0.05 ng/mL (<0.5)
[2018-12-30 13:30] LABS: B Type Natriuretic Peptide 651 (<100)
[2018-12-30] MEDS: SODIUM CHLORIDE 0.9% 500 ML 1000 ML IV (13:43)
[2018-12-30 14:00] VITALS: BP 106/38; PULSE 93; RESP 24; O2SAT 99
[2018-12-30 14:21] LABS: Lactate (Lactic Acid) 1.4 mmol/L (0.7-2.1)
--- NOTE | 2018-12-30 14:25 | PC.NURSE ---
pt insisting to stand up for cramps, pt is asking for salt packets. notified provider. offered pt a wheelchair to sit, pt daughter stated she'd likely stand up without help and fall. she didn't want us to move her out of bed.
[2018-12-30 14:33] LABS: Influenza A and B by PCR Rapid Negative (Negative)
[2018-12-30 14:49] VITALS: BP 147/111; PULSE 83; RESP 24; O2SAT 97
[2018-12-30 15:34] LABS: Appearance Urine UA CLEAR; Bilirubin Urine UA NEGATIVE (NEGATIVE); Color Urine UA YELLOW; Glucose Urine UA NEGATIVE (Negative); Ketones Urine UA NEGATIVE (NEGATIVE); Leukocyte Esterase Urine UA NEGATIVE (NEGATIVE); Nitrite Urine UA NEGATIVE (Negative); Occult Blood Urine UA TRACE-INTACT (Negative); Protein Urine UA NEGATIVE (Negative)
--- NOTE | 2018-12-30 15:37 | PC.NURSE ---
pt given chicken broth and saltines, then helped back to bed, pt resting with eyes closed.
[2018-12-30 15:48] LABS: Amorphous Sediment Urine 1+; Bacteria Urine Occasional (0-1); Culture Indicated Urine Cult Not Indicated; Mucus Urine 1+ (Negative); RBC Urine 1-5/HPF (0-5/HPF); Squamous Epithelial Cell Urine 0-1 /HPF; WBC Urine 0-1/HPF (0-5/HPF)
--- NOTE | 2018-12-30 16:09 | ED_ITS ---
HPI - SOB/Dyspnea <JOSE Giron - Last Filed: 12/30/18 22:34> General Chief Complaint: Shortness of Breath/Dyspnea Stated Complaint: SOB Time Seen by Provider: 12/30/18 12:24 Source: family and EMS Mode of arrival: EMS Limitations: no limitations History of Present Illness 83-year-old female with history of morbid obesity CHF and pulmonary embolus here for complaint of having shortness of breath that started last night. She denies any chest pain. No fevers no chills. She also complains of having pain to b ilateral lower extremities and describes this as crampy pain. This is not new for her as she reports that she normally has cramps to her lower extremities. She has been tolerating p.o. intake well. No stressors or relievers of her discomfort. She is able to speak full sentences. She normally uses oxygen at home due to sleep apnea. MD Complaint: shortness of breath Related Data Home Medications Medication Instructions Recorded Confirmed Xarelto 15 mg PO DAILY 12/30/18 12/30/18 acetaminophen-codeine 0.5 - 1 tab PO BID PRN 12/30/18 12/30/18 amiodarone 200 mg PO DAILY 12/30/18 12/30/18 clotrimazole-betamethasone 1 applic TOPICAL BID 12/30/18 12/30/18 duloxetine [Cymbalta] 30 mg PO DAILY 12/30/18 12/30/18 estradiol [Estrace] 1 applic VAGINAL BID 12/30/18 12/30/18 furosemide 40 mg PO DAILY 12/30/18 12/30/18 gabapentin 300 mg PO DAILY 12/30/18 12/30/18 gabapentin 600 mg PO BID 12/30/18 12/30/18 methimazole 5 mg PO DAILY 12/30/18 12/30/18 nitroglycerin 0.4 mg SUBLINGUAL PRN PRN 12/30/18 12/30/18 potassium chloride [Klor-Con M20] 20 meq PO DAILY 12/30/18 12/30/18 ropinirole [Requip] 0.25 mg PO BEDTIME 12/30/18 12/30/18 sulfamethoxazole-trimethoprim 1 tab PO BIDX7 12/30/18 12/30/18 tizanidine 4 mg PO BEDTIME 12/30/18 12/30/18 tramadol 50 mg PO TID PRN 12/30/18 12/30/18 Previous Rx's Medication Instructions Recorded nystatin 1 applictn TOP BID #30 gram 12/07/18 furosemide 40 mg PO DAILY #10 tab 12/30/18 furosemide 40 mg PO DAILY #7 tab 12/30/18 Allergies Allergy/AdvReac Type Severity Reaction Status Date / Time Penicillins [PENICILLINS] Allergy Severe HIVES Verified 12/07/18 17:53 cyclobenzaprine Allergy Unknown Verified 12/07/18 17:53 [CYCLOBENZAPRINE] indomethacin [INDOMETHACIN] Allergy Unknown Verified 12/07/18 17:53 ketorolac [KETOROLAC] Allergy Unknown Verified 12/07/18 17:53 morphine [MORPHINE] Allergy Unknown Verified 12/07/18 17:53 oxybutynin [OXYBUTYNIN] Allergy Unknown Verified 12/07/18 17:53 sertraline [SERTRALINE] Allergy Unknown Verified 12/07/18 17:53 aspirin [ASPIRIN] AdvReac Intermediate NAUSEA AND Verified 12/07/18 17:53 VOMITING ibuprofen [IBUPROFEN] AdvReac Intermediate NAUSEA AND Verified 12/07/18 17:53 VOMITING Review of Systems <JOSE Giron - Last Filed: 12/30/18 22:34> Constitutional Denies chills, Denies fever(s), Denies lethargy and Denies weakness Eyes Denies change in vision, Denies eye discharge, Denies irritation and Denies loss of vision ENT Ears, Nose, Mouth, and Throat: Denies change in voice, Denies neck pain, Denies sore throat and Denies throat swelling Cardiovascular Denies chest pain, Denies irregular heart rhythm, Denies lightheadedness, Denies palpitations, Reports dyspnea and Denies orthopnea Respiratory Reports dyspnea and Denies wheezing Gastrointestinal Gastrointestinal: Denies abdominal pain, Denies change in bowel habits, Denies diarrhea, Denies nausea and Denies vomiting Genitourinary Denies hematuria, Denies flank pain, Denies urinary incontinence and Denies urinary urgency Musculoskeletal Denies neck pain Neurologic Denies confusion, Denies loss of vision and Denies weakness Psychiatric Denies anxiety, Denies confusion, Denies depression, Denies homicidal ideation and Denies suicidal ideation Endocrine Denies palpitations Allergic/Immunologic Denies urticaria, Denies throat swelling and Denies wheezing PFSH <JOSE Giron - Last Filed: 12/30/18 22:34> Medical History Restless leg syndrome (Acute) Surgical History History of knee replacement Social History Smoking Status: Never smoker Social History Smoking Status: Never smoker Exam <JOSE Giron - Last Filed: 12/30/18 22:34> Initial Vital Signs Initial Vital Signs: Vital Signs Temperature 97.7 F 12/30/18 12:11 Pulse Rate 83 12/30/18 12:11 Respiratory Rate 24 12/30/18 12:11 Blood Pressure 158/70 H 12/30/18 12:11 Pulse Oximetry 100 12/30/18 12:11 Const General: cooperative and well developed Nutritional Appearance: well nourished Orientation: alert, awake, oriented x3 and not confused HENNJ Mouth: oral mucosae normal and moist mucous membranes Eyes General: appearance normal, both eyes and all related structures Eyelids: eyelids normal Conjunctivae: conjunctivae normal Sclera: sclerae normal Pupils: PERRL EOM: EOM intact bilaterally Resp Effort & Inspection: normal respiratory effort, able to speak in complete sentences, no respiratory distress and no use of accessory muscles Auscultation: clear to auscultation bilaterally, no rales, no rhonchi and no wheezes Cardio Rate: regular rate Rhythm: regular rhythm Heart Sounds: no click, no gallops, no murmurs and no rubs Pulses: normal peripheral pulses Skin General: no rashes or lesions noted, No jaundice and No petechiae Neuro General: alert, oriented x3, gait normal and no focal motor deficits Speech: speech normal Extrem General: full ROM, no clubbing, cyanosis or edema, no pedal edema and no calf tenderness Right lower extremity: no edema Left lower extremity: no edema <Blessing Weber DO - Last Filed: 01/01/19 11:25> Initial Vital Signs Initial Vital Signs: Vital Signs Temperature 97.7 F 12/30/18 12:11 Pulse Rate 83 12/30/18 12:11 Respiratory Rate 24 12/30/18 12:11 Blood Pressure 158/70 H 12/30/18 12:11 Pulse Oximetry 100 12/30/18 12:11 Course <JOSE Giron - Last Filed: 12/30/18 22:34> Orders Ordered: Discontinued Medications Sodium Chloride (Normal Saline 0.9%) 500 mls @ 1,000 mls/hr IV BOLUS ONE Stop: 12/30/18 14:09 Last Infusion: 12/30/18 17:18 Dose: 0 mls/hr Admin: 12/30/18 13:43 Dose: 1,000 mls/hr Morphine Sulfate (Morphine) 2 mg IV NOW ONE Stop: 12/30/18 14:39 Vital Signs - 8 hr 12/30/18 14:49 12/30/18 16:30 Pulse Rate 83 82 Respiratory Rate 24 21 Blood Pressure [Left Arm] 147/111 H 138/60 Pulse Oximetry 97 100 <Blessing Weber DO - Last Filed: 01/01/19 11:25> Orders Ordered: Discontinued Medications Sodium Chloride (Normal Saline 0.9%) 500 mls @ 1,000 mls/hr IV BOLUS ONE Stop: 12/30/18 14:09 Last Infusion: 12/30/18 17:18 Dose: 0 mls/hr Admin: 12/30/18 13:43 Dose: 1,000 mls/hr Morphine Sulfate (Morphine) 2 mg IV NOW ONE Stop: 12/30/18 14:39 Vital Signs - 8 hr 12/30/18 14:49 12/30/18 16:30 Pulse Rate 83 82 Respiratory Rate 24 21 Blood Pressure [Left Arm] 147/111 H 138/60 Pulse Oximetry 97 100 MDM - SOB/Dyspnea <JOSE Giron - Last Filed: 12/30/18 22:34> Lab Data Result diagrams: 12/30/18 11:30 12/30/18 11:30 Lab Results 12/30/18 12/30/18 12/30/18 Range/Units 11:30 11:30 11:30 WBC 5.8 (4.5-11.0) X10^3/uL RBC 4.20 (4.0-5.2) X10^6/uL Hgb 13.0 (12.0-16.0) g/dL Hct 39.3 (36-46) % MCV 93.4 (80-100) fL MCH 30.9 (26-34) PG MCHC 33.1 (30-36) % RDW 14.7 (11.6-14.8) % Plt Count 238 (150-400) X10^3/uL Neut % (Auto) 71.5 (50-75) % Lymph % (Auto) 12.9 L (25-40) % [place] % (Auto) 13.7 (3-14) % Eos % (Auto) 1.5 L (2-4) % Baso % (Auto) 0.4 (0-2) % Neut # (Auto) 4100 (2284-7703) /uL Lymph # (Auto) 700 L (1079-5345) /uL [place] # (Auto) 800 (0-900) /uL Eos # (Auto) 100 (0-450) /uL Baso # (Auto) 0 (0-100) /uL Sodium 128 L (137-145) mmol/L Potassium 4.7 (3.4-5.1) mmol/L Chloride 89 L (98-107) mmol/L Carbon Dioxide 27 (22-32) mmol/L BUN 14 (7-17) mg/dL Creatinine 0.90 (0.52-1.04) mg/dL Estimated GFR 59.8 L (>60) mL/min BUN/Creatinine Ratio 15.6 (6-22) Glucose 96 (80-110) mg/dL Lactate (0.7-2.1) mmol/L Calcium 9.8 (8.4-10.2) mg/dL Magnesium 2.0 (1.6-2.3) mg/dL Total Bilirubin 1.4 H (0.2-1.3) mg/dL AST 42 H (14-36) IU/L ALT 24 (9-52) IU/L Alkaline Phosphatase 134 H (38-126) U/L Total Creatine Kinase 313 H (30-135) U/L CK-MB (CK-2) 7.80 H (<2.37) ng/mL CK-MB (CK-2) Rel Index 2.5 (1.5-5.0) % Troponin I 0.021 (0.01-0.034) ng/mL B-Natriuretic Peptide 651 H (<100) Total Protein 8.6 H (6.3-8.2) g/dL Albumin 4.6 (3.5-5.0) g/dL Globulin 4.0 (1.7-4.1) g/dL Albumin/Globulin Ratio 1.2 (1.0-2.8) Procalcitonin < 0.05 (<0.5) ng/mL Urine Color Urine Appearance Urine pH (4.5-8.0) Ur Specific [place] (1.000-1.035) Urine Protein (Negative) Urine Glucose (UA) (Negative) g/dL Urine Ketones (NEGATIVE) Urine Occult Blood (Negative) Urine Nitrate (Negative) Urine Bilirubin (NEGATIVE) Urine Urobilinogen (0.2) E.U./dL Ur Leukocyte Esterase (NEGATIVE) Urine RBC (0-5/HPF) Urine WBC (0-5/HPF) Ur Squamous Epith Cells Amorphous Sediment Urine Bacteria (None) Urine Mucus (Negative) Ur Culture Indicated? Influenza A & B (PCR) (Negative) 12/30/18 12/30/18 12/30/18 Range/Units 13:34 14:10 15:00 WBC (4.5-11.0) X10^3/uL RBC (4.0-5.2) X10^6/uL Hgb (12.0-16.0) g/dL Hct (36-46) % MCV (80-100) fL MCH (26-34) PG MCHC (30-36) % RDW (11.6-14.8) % Plt Count (150-400) X10^3/uL Neut % (Auto) (50-75) % Lymph % (Auto) (25-40) % [place] % (Auto) (3-14) % Eos % (Auto) (2-4) % Baso % (Auto) (0-2) % Neut # (Auto) (6339-1048) /uL Lymph # (Auto) (1407-0689) /uL [place] # (Auto) (0-900) /uL Eos # (Auto) (0-450) /uL Baso # (Auto) (0-100) /uL Sodium (137-145) mmol/L Potassium (3.4-5.1) mmol/L Chloride (98-107) mmol/L Carbon Dioxide (22-32) mmol/L BUN (7-17) mg/dL Creatinine (0.52-1.04) mg/dL Estimated GFR (>60) mL/min BUN/Creatinine Ratio (6-22) Glucose (80-110) mg/dL Lactate 1.4 (0.7-2.1) mmol/L Calcium (8.4-10.2) mg/dL Magnesium (1.6-2.3) mg/dL Total Bilirubin (0.2-1.3) mg/dL AST (14-36) IU/L ALT (9-52) IU/L Alkaline Phosphatase (38-126) U/L Total Creatine Kinase (30-135) U/L CK-MB (CK-2) (<2.37) ng/mL CK-MB (CK-2) Rel Index (1.5-5.0) % Troponin I (0.01-0.034) ng/mL B-Natriuretic Peptide (<100) Total Protein (6.3-8.2) g/dL Albumin (3.5-5.0) g/dL Globulin (1.7-4.1) g/dL Albumin/Globulin Ratio (1.0-2.8) Procalcitonin (<0.5) ng/mL Urine Color Yellow Urine Appearance Clear Urine pH 7.0 (4.5-8.0) Ur Specific [place] 1.010 (1.000-1.035) Urine Protein Negative (Negative) Urine Glucose (UA) Negative (Negative) g/dL Urine Ketones Negative (NEGATIVE) Urine Occult Blood Trace-intact (Negative) Urine Nitrate Negative (Negative) Urine Bilirubin Negative (NEGATIVE) Urine Urobilinogen 4.0 H (0.2) E.U./dL Ur Leukocyte Esterase Negative (NEGATIVE) Urine RBC 1-5/hpf (0-5/HPF) Urine WBC 0-1/hpf (0-5/HPF) Ur Squamous Epith Cells 0-1 /hpf Amorphous Sediment 1+ Urine Bacteria Occasional (0-1) (None) Urine Mucus 1+ H (Negative) Ur Culture Indicated? Cult not indicated Influenza A & B (PCR) Negative (Negative) Imaging Data CT scan - chest: Radiologist's impression: [address] [address] [address] Scan Report Signed Patient: Siddharth Spence [facility]#: [id number] : 5Acct:[id number] Age/Sex: 83 / FDate of Service: 12/30/18 Loc: ED Accession Number: [id number] Procedure: CT angio chest PE protocol Ordering Provider: Freddie Zapata PROCEDURE: CT ANGIO CHEST PE PROTOCOL INDICATIONS: Shortness of breath history of blood clots TECHNIQUE: After the administration of intravenous contrast, 2 mm thick sections acquired from the pulmonary apices to the posterior costophrenic angles. 3-dimensional maximum intensity projection (MIP) coronal and sagittal reformats were then acquired through the thorax. For radiation dose reduction, the following was used: automated exposure control, adjustment of mA and/or kV according to patient size. COMPARISON: , CT, CT CHEST ABDOMEN PELVIS WITH TRAUMA, 07/22/2018, 14:00. FINDINGS: Image quality: A limited by suboptimal contrast opacification of the subsegmental pulmonary arteries. Pulmonary arteries: Pulmonary arteries are normal in size, and demonstrate no intraluminal filling defects to suggest central pulmonary embolism. Lungs and pleura: Dependent atelectasis noted. 8mm nodule in the lateral periphery of the lingula of left upper lobe has resolved. No pleural effusions or pneumothorax. Central and peripheral airways are patent. Mediastinum: Heart size is enlarged without pericardial effusion. Atheros clerotic calcifications are noted in the aorta, great vessels and the coronary vasculature. No mediastinal or hilar adenopathy. Thoracic aorta is normal in caliber and enhancement. Esophagus is normal in caliber, without hiatal hernia. Bones and chest wall: No suspicious bony lesions. Ribs and thoracic spine appear intact throughout. Spine degenerative disc disease and facet arthropathy. Convex right curvature thoracic spine noted. Thyroid gland is enlarged with multiple hypoattenuating nodules. Largest nodules in the left lobe measures 4.5 cm in diameter. There is leftward shift of the upper thoracic trachea related to enlarged thyroid.. No axillary or supraclavicular adenopathy. Abdomen: Small hiatal hernia. Gallbladder is absent. The spleen is normal. Liver is within normal limits where visualized. The adrenal glands are normal. IMPRESSION: 1. Diagnostic sensitivity study limited by poor contrast opacification of the subsegmental pulmonary arteries. 2. No evidence of pulmonary embolus to the level of the segmental pulmonary arteries. Small pulmonary emboli involving the subsegmental pulmonary arteries cannot be excluded due to the limitations of the study. 3. No lung consolidation or pleural effusions. 4. Cardiomegaly. 5. Atherosclerosis including the coronary vasculature. 6. Multinodular thyroid gland with the largest nodule measuring 4.5 cm. Recommend thyroid ultrasound for definitive characterization if clinically indicated. 7. Small hiatal hernia. Dictated by: Jacqui Crisostomo MD, PhD on 12/30/2018 at 14:10 Approved by: Jacqui Crisostomo MD, PhD on 12/30/2018 at 14:21 Venous US: Radiologist's impression: [address] [address] Ultrasound Report Signed Patient: Siddharth Spence [facility]#: [id number] : 5Acct:[id number] Age/Sex: 83 / FDate of Service: 12/30/18 Loc: ED Accession Number: [id number] Procedure: US periph venous low extrem bi Ordering Provider: Freddie Zapata PROCEDURE: US PERIPH VENOUS LOW EXTREM BI INDICATIONS: PAIN TO LOWER EXTREMITIES TECHNIQUE: Real-time imaging, as well as color and pulse Doppler interrogation, were performed of the deep veins of both legs from the inguinal ligament to the popliteal fossa. COMPARISON: None. FINDINGS: This is a limited study. Extremely difficult examination due to patient body habitus, uncooperation, and constant movement. No obvious sign of DVT. IMPRESSION: Technically challenging study, limited, with no obvious sign of DVT. Dictated by: Attila Villafana M.D. on 12/30/2018 at 13:50 Approved by: Attila Villafana M.D. on 12/30/2018 at 13:51 ECG Data Interpretation: EKG shows sinus rhythm with no ST elevation or depression. No ectopy. Ventricular rate of 78. Pr interval of 176. QRS duration of 108. QTC of 405. MDM Narrative Medical decision making narrative: pe protocol CT was obtained and was negative for pulmonary embolus. No acute cardiopulmonary findings. CT does show cardiomegaly. Incidental finding of a multi nodular thyroid gland will have this followed up by primary care provider. CBC shows normal white count normal H&H. chemistry shows hypo in a tree me a of 128 and a chloride of 89. BNP is elevated at 651. Procalcitonin was 0.05. lactate was normal at 1.4. Troponin was obtained and was negative. She is able to tolerate p.o. intake. She was given broth and saltine crackers which she tolerated well. Believe her cramps is due to the sodium level. Respiratory rate was elevated 24 looking at her prior respiratory values at believe this may be the norm for her. Discussed case with hospitalist Dr. Cortez who does not believe the patient meets admission criteria. She is given a small amount of Lasix for the next few days to help with CHF. She is instructed not to limit the amount of free water that she is drinking. She is in courage to increase her sodium intake over the next few days see her doctor in the next couple of days for re-evaluation. For any worsening symptoms return emergency room. <Blessing Weber, DO - Last Filed: 01/01/19 11:25> Lab Data Lab Results 12/30/18 12/30/18 12/30/18 Range/Units 11:30 11:30 11:30 WBC 5.8 (4.5-11.0) X10^3/uL RBC 4.20 (4.0-5.2) X10^6/uL Hgb 13.0 (12.0-16.0) g/dL Hct 39.3 (36-46) % MCV 93.4 (80-100) fL MCH 30.9 (26-34) PG MCHC 33.1 (30-36) % RDW 14.7 (11.6-14.8) % Plt Count 238 (150-400) X10^3/uL Neut % (Auto) 71.5 (50-75) % Lymph % (Auto) 12.9 L (25-40) % [place] % (Auto) 13.7 (3-14) % Eos % (Auto) 1.5 L (2-4) % Baso % (Auto) 0.4 (0-2) % Neut # (Auto) 4100 (0839-8910) /uL Lymph # (Auto) 700 L (7743-6841) /uL [place] # (Auto) 800 (0-900) /uL Eos # (Auto) 100 (0-450) /uL Baso # (Auto) 0 (0-100) /uL Sodium 128 L (137-145) mmol/L Potassium 4.7 (3.4-5.1) mmol/L Chloride 89 L (98-107) mmol/L Carbon Dioxide 27 (22-32) mmol/L BUN 14 (7-17) mg/dL Creatinine 0.90 (0.52-1.04) mg/dL Estimated GFR 59.8 L (>60) mL/min BUN/Creatinine Ratio 15.6 (6-22) Glucose 96 (80-110) mg/dL Lactate (0.7-2.1) mmol/L Calcium 9.8 (8.4-10.2) mg/dL Magnesium 2.0 (1.6-2.3) mg/dL Total Bilirubin 1.4 H (0.2-1.3) mg/dL AST 42 H (14-36) IU/L ALT 24 (9-52) IU/L Alkaline Phosphatase 134 H (38-126) U/L Total Creatine Kinase 313 H (30-135) U/L CK-MB (CK-2) 7.80 H (<2.37) ng/mL CK-MB (CK-2) Rel Index 2.5 (1.5-5.0) % Troponin I 0.021 (0.01-0.034) ng/mL B-Natriuretic Peptide 651 H (<100) Total Protein 8.6 H (6.3-8.2) g/dL Albumin 4.6 (3.5-5.0) g/dL Globulin 4.0 (1.7-4.1) g/dL Albumin/Globulin Ratio 1.2 (1.0-2.8) Procalcitonin < 0.05 (<0.5) ng/mL Urine Color Urine Appearance Urine pH (4.5-8.0) Ur Specific [place] (1.000-1.035) Urine Protein (Negative) Urine Glucose (UA) (Negative) g/dL Urine Ketones (NEGATIVE) Urine Occult Blood (Negative) Urine Nitrate (Negative) Urine Bilirubin (NEGATIVE) Urine Urobilinogen (0.2) E.U./dL Ur Leukocyte Esterase (NEGATIVE) Urine RBC (0-5/HPF) Urine WBC (0-5/HPF) Ur Squamous Epith Cells Amorphous Sediment Urine Bacteria (None) Urine Mucus (Negative) Ur Culture Indicated? Influenza A & B (PCR) (Negative) 12/30/18 12/30/18 12/30/18 Range/Units 13:34 14:10 15:00 WBC (4.5-11.0) X10^3/uL RBC (4.0-5.2) X10^6/uL Hgb (12.0-16.0) g/dL Hct (36-46) % MCV (80-100) fL MCH (26-34) PG MCHC (30-36) % RDW (11.6-14.8) % Plt Count (150-400) X10^3/uL Neut % (Auto) (50-75) % Lymph % (Auto) (25-40) % [place] % (Auto) (3-14) % Eos % (Auto) (2-4) % Baso % (Auto) (0-2) % Neut # (Auto) (1918-3223) /uL Lymph # (Auto) (5109-6353) /uL [place] # (Auto) (0-900) /uL Eos # (Auto) (0-450) /uL Baso # (Auto) (0-100) /uL Sodium (137-145) mmol/L Potassium (3.4-5.1) mmol/L Chloride (98-107) mmol/L Carbon Dioxide (22-32) mmol/L BUN (7-17) mg/dL Creatinine (0.52-1.04) mg/dL Estimated GFR (>60) mL/min BUN/Creatinine Ratio (6-22) Glucose (80-110) mg/dL Lactate 1.4 (0.7-2.1) mmol/L Calcium (8.4-10.2) mg/dL Magnesium (1.6-2.3) mg/dL Total Bilirubin (0.2-1.3) mg/dL AST (14-36) IU/L ALT (9-52) IU/L Alkaline Phosphatase (38-126) U/L Total Creatine Kinase (30-135) U/L CK-MB (CK-2) (<2.37) ng/mL CK-MB (CK-2) Rel Index (1.5-5.0) % Troponin I (0.01-0.034) ng/mL B-Natriuretic Peptide (<100) Total Protein (6.3-8.2) g/dL Albumin (3.5-5.0) g/dL Globulin (1.7-4.1) g/dL Albumin/Globulin Ratio (1.0-2.8) Procalcitonin (<0.5) ng/mL Urine Color Yellow Urine Appearance Clear Urine pH 7.0 (4.5-8.0) Ur Specific [place] 1.010 (1.000-1.035) Urine Protein Negative (Negative) Urine Glucose (UA) Negative (Negative) g/dL Urine Ketones Negative (NEGATIVE) Urine Occult Blood Trace-intact (Negative) Urine Nitrate Negative (Negative) Urine Bilirubin Negative (NEGATIVE) Urine Urobilinogen 4.0 H (0.2) E.U./dL Ur Leukocyte Esterase Negative (NEGATIVE) Urine RBC 1-5/hpf (0-5/HPF) Urine WBC 0-1/hpf (0-5/HPF) Ur Squamous Epith Cells 0-1 /hpf Amorphous Sediment 1+ Urine Bacteria Occasional (0-1) (None) Urine Mucus 1+ H (Negative) Ur Culture Indicated? Cult not indicated Influenza A & B (PCR) Negative (Negative) Discharge Plan Departure Patient Disposition: Home Clinical Impression: Acute hyponatremia Congestive heart failure (CHF) Qualifiers: Heart failure type: unspecified Heart failure chronicity: unspecified Qualified Code(s): I50.9 - Heart failure, unspecified Discharge Date/Time: 12/30/18 17:54 Interventions: ED Discharge Assessment Last Done: 12/30/18 17:14 Instructions: DI for Heart Failure Activity Restrictions/Additional Instructions: CT scan today was obtained and was negative for any acute pulmonary findings or blood clot. Ultrasound lower extremities was also obtained was also negative for any blood clots. Cardiac enzymes today were obtained and were negative. EKG today was unremarkable. Her BNP is elevated indicating that she has some heart failure. She is prescribed a small amount of Lasix over the next few days to help with this. Follow up with primary care provider in the next couple of days for re-evaluation. Her sodium level was low today ensure that she is not drinking as much free fluid. Increased sodium intake over the next few days to help with this level. Incidental finding on CT shows that she has nodules to her thyroid area. Recommend follow-up study see primary care about this for further evaluation. For any worsening symptoms return to the emergency room. Prescriptions: New furosemide 20 mg tablet 40 mg PO DAILY Qty: 10 RF: 0 furosemide 40 mg tablet 40 mg PO DAILY Qty: 7 RF: 0 No Action furosemide 40 mg tablet 40 mg PO DAILY RF: 0 gabapentin 600 mg tablet 600 mg PO BID RF: 0 tizanidine 4 mg tablet 4 mg PO BEDTIME RF: 0 amiodarone 200 mg tablet 200 mg PO DAILY RF: 0 acetaminophen-codeine 300-30 mg tablet 0.5 - 1 tab PO BID PRN (Reason: pain) RF: 0 nitroglycerin 0.4 mg tablet, sublingual 0.4 mg Sublingual PRN PRN (Reason: Chest Pain) RF: 0 estradiol [Estrace] 0.01 % (0.1 mg/gram) cream 1 applic Vaginal BID RF: 0 tramadol 50 MG tablet 50 mg PO TID PRN (Reason: pain) RF: 0 ropinirole [Requip] 0.25 MG tablet 0.25 mg PO BEDTIME RF: 0 methimazole 5 MG tablet 5 mg PO DAILY RF: 0 duloxetine [Cymbalta] 30 MG capsule,delayed release(DR/EC) 30 mg PO DAILY RF: 0 Xarelto 15 MG tablet 15 mg PO DAILY RF: 0 sulfamethoxazole-trimethoprim 800-160 mg tablet 1 tab PO BIDX7 RF: 0 potassium chloride [Klor-Con M20] 20 MEQ tablet,ER particles/crystals 20 meq PO DAILY RF: 0 gabapentin 600 mg tablet 300 mg PO DAILY RF: 0 clotrimazole-betamethasone 1-0.05 % cream 1 applic topical BID RF: 0 nystatin 100,000 unit/gram ointment 1 applictn TOP BID Qty: 30 RF: 0 Referrals: Lorenzo Muller MD [Primary Care Provider] - <Blessing Weber DO - Last Filed: 01/01/19 11:25> Cosign ED Attending Cosignature Attestation: I was immediately available in the department for consultation. Case was discussed and provider felt patient may benefit from observation. Patient has not had any treatment for CHF exacerbation up to this point and hospitalist deferred. This documentation has been reviewed and I agree with assessment and plan. Supervised by Blessing Weber DO
[2018-12-30 16:30] VITALS: BP 138/60; PULSE 82; RESP 21; O2SAT 100
== END 2018-12-30 17:54 | disposition home or self-care (01) ==
PROVIDERS: Emergency Provider Nurse Practitioner Family; Family Provider Family Medicine; PCP Family Medicine
DX: E87.1 Hypo-osmolality and hyponatremia (principal); I50.9 Heart failure, unspecified
CPT/HCPCS: 36415; 36591; 71275; 80053; 81001; 82550; 82553; 83605; 83735; 83880; 84145; 84484; 85025; 87040; 87400; 93005; 93970; 96361; 96374; 99283; 99285; Q9967

== ENCOUNTER → 2019-08-12 16:54 | Outpatient (CLI) | payer MEDICARE, MEDICAID, SELFPAY | PROVIDERS: Visit Provider Family Medicine ==